=== PATIENT | male | born 1955 | race African-American/Black ===

== ENCOUNTER 2020-10-05 09:22 | Outpatient (CLI) | payer MEDICARE ==
--- NOTE | 2020-10-08 07:52 | Magnetic Resonance Report ---
MRI BRAIN WITHOUT AND WITH CONTRAST, IAC PROTOCOL INDICATION / CLINICAL INFORMATION: IMBALANCE,HEARING LOSS RT SIDE. TECHNIQUE: Multiplanar, multisequence MR images of the brain were obtained. The institution's "Internal Auditory Canal/Posterior Fossa" MRI protocol was used. COMPARISON: None available. FINDINGS: CP ANGLE/INTERNAL AUDITORY CANALS: No abnormal cerebellopontine angle mass, enhancement or signal int ensity. LABYRINTHINE STRUCTURES: There is some loss of T2 signal in the right superior semicircular canal. Re maining labyrinthine structures appear normal. MASTOID AERATION: No significant abnormality. ADDITIONAL TEMPORAL BONE ABNORMALITIES: None. REMAINDER OF BRAIN / INTRACRANIAL CONTENTS: No acute ischemia, acute hemorrhage, mass effect, midline shift, or hydrocephalus. No chronic infarct. Age-commensurate generalized ventricular and cisternal /sulcal prominence without discrete superimposed focal atrophy. Age-commensurate small foci of cerebr al white matter FLAIR hyperintensity. CRANIOCERVICAL JUNCTION: No significant abnormality. VASCULAR FLOW-VOIDS: No significant abnormality. ORBITS: No significant abnormality of visualized orbits. PARANASAL SINUSES: No significant abnormality of visualized sinuses and mastoid air cells. ADDITIONAL FINDINGS: None. IMPRESSION: 1. 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 2. No CP angle or IAC mass. Signer Name: Burt Oneal MD Signed: 10/05/2020 11:12 AM Workstation Name: [id number]
== END 2020-10-05 09:23 | disposition home or self-care (01) ==
LOC: MRI 09:22
PROVIDERS: ATTEND Otolaryngology
DX: H90.5 Unspecified sensorineural hearing loss (principal); R26.89 Other abnormalities of gait and mobility
CPT/HCPCS: 70553; A9575